=== PATIENT | male | born 1995 ===

== ENCOUNTER → 2017-08-15 13:34 | Outpatient (REF) | payer OTHER, SELFPAY | LOC: LAB 13:34 | PROVIDERS: Visit Provider Otolaryngology | DX: H60.311 Diffuse otitis externa, right ear (principal) | CPT/HCPCS: 87070; 87205 ==

== ENCOUNTER → 2017-10-18 18:23 | Outpatient (REF) | payer OTHER, SELFPAY | LOC: LAB 18:23 | PROVIDERS: Visit Provider Otolaryngology | DX: H60.312 Diffuse otitis externa, left ear (principal) | CPT/HCPCS: 87070; 87077; 87186; 87205 ==